=== PATIENT | male | born 1985 | race Caucasian/White ===

== ENCOUNTER 2020-02-04 22:50 | Emergency (ER) | payer BC ==
[~2020-02-04] VITALS: Ht 182.9 cm; Wt 102.2 kg
--- NOTE | 2020-02-05 00:52 | RAD ---
AP pelvis radiograph to include AP and lateral radiographs of the left hip 02/05/2020 CLINICAL HISTORY: Pelvic and left hip pain. Two AP digital radiographs of the pelvis and AP and lateral digital radiographs of the left hip were obtained. No pelvic bone fracture is seen. Both hips are intact. Specifically no fracture or dislocation left hip is seen. Surgical clips overlie the scrotum. No significant degenerative changes are noted. Calcifications are seen within the pelvis consistent with phleboliths. IMPRESSION: No acute osseous abnormality is seen. Electronically signed by: Gerry Sandy MD (02/05/2020 12:49 AM) [id number]
[2020-02-05] MEDS ORDERED: ORPHENADRINE CITRATE 60 MG/2 ML VIAL. IM ONE (01:00)
[2020-02-05 01:11] VITALS: BP 134/66
--- NOTE | 2020-02-05 01:20 | RAD ---
CT scan of the lumbar spine contrast 02/05/2020 CLINICAL HISTORY: Low back pain which radiates down the left leg. TECHNIQUE: Unenhanced, contiguous, 0.625 mm axial sections were obtained through the lumbar spine. 3 mm reconstructed sagittal, axial and coronal images were obtained. One or more of the following individualized dose reduction techniques were utilized for this study: 1. Automated exposure control. 2. Adjustment of the mA and/or kV according to patient size. 3. Use of iterative reconstruction technique. FINDINGS: Sagittal and coronal reconstructed images demonstrate minimal S-shaped curvature of the thoracolumbar spine. No fracture or subluxation of the lumbar vertebrae is seen. On the axial images the changes of degenerative disc disease are seen involving the mid and lower lumbar disc spaces. These consist of minimal to mild generalized disc bulges, degenerative changes involving the facet joints and mild ligamentum flavum hypertrophy. These findings result in mild to moderate central spinal canal stenosis at L4-5. A left paracentral focal disc protrusion is seen at L5-S1 which appears to contribute to mild to moderate left greater than right central spinal canal stenosis and may impinge upon the left S1 nerve root within the left lateral aspect of the central spinal canal. No neural foraminal stenosis is seen. IMPRESSION: The changes of degenerative disc disease are seen involving the lower lumbar spine. These findings result in mild to moderate central spinal canal stenosis at L4-5 and mild to moderate left greater than right central spinal canal stenosis at L5-S1. A left paracentral focal disc protrusion is seen at L5-S1 which may impinge upon the left S1 nerve root within the left lateral aspect of the central spinal canal. No acute osseous abnormality is seen. Electronically signed by: Gerry Sandy MD (02/05/2020 1:17 AM) [id number]
--- NOTE | 2020-02-05 01:27 | PHYS DOC ---
Past Medical History Past Medical History: Sciatica Past Medical History gout, sciatica Past Surgical History: No Surgical History Smoking Status: Current Every Day Smoker Additional Information: [employer] Alcohol Use: Occasionally Drug Use: None General Adult EDM: Chief Complaint: HIP PAIN HPI: HPI: Patient is a 34 year old male who presents for evaluation of low back pain as well as numbness and pain from his left hip down to his foot. Symptoms do wax and wane. They are particular worse than 5 PM today but initial onset of symptoms was almost 7 months ago. Patient has a known history of sciatica. Patient previously seen his chiropractor last 3 months but not recently. Patient denies any fall, injury or new trauma. Patient took ibuprofen maximum dose today with minimal improvement of symptoms. Patient states that even earlier today his symptoms do wax and wane. There is no reported loss of bowel bladder control, footdrop or saddle anesthesia Review of Systems: Review of Systems: Constitutional: Denies fever or chills. [] Eyes: Denies change in visual acuity. [] HENT: Denies nasal congestion or sore throat. [] Respiratory: Denies cough or shortness of breath. [] Cardiovascular: Denies chest pain or edema. [] GI: Denies abdominal pain, nausea, vomiting, bloody stools or diarrhea. [] : Denies dysuria. [] Musculoskeletal: has back pain and left hip joint pain. [] Integument: Denies rash. [] Neurologic: Denies headache, focal weakness or sensory changes. [] Endocrine: Denies polyuria or polydipsia. [] Lymphatic: Denies swollen glands. [] Psychiatric: Denies depression or anxiety. [] Heart Score: Risk Factors: Risk Factors: DM, Current or recent (<one month) smoker, HTN, HLP, family history of CAD, obesity. Risk Scores: Score 0 - 3: 2.5% MACE over next 6 weeks - Discharge Home Score 4 - 6: 20.3% MACE over next 6 weeks - Admit for Clinical Observation Score 7 - 10: 72.7% MACE over next 6 weeks - Early Invasive Strategies Current Medications: Current Medications Medications (Trade) Dose Ordered Sig/Jaime Start Time Stop Time Status Last Admin Dose Admin Orphenadrine Citrate (Norflex) 60 mg 1X ONCE 02/05/20 01:00 02/05/20 01:01 DC 02/05/20 01:08 60 MG Allergies: Allergies: Allergies Coded Allergies Type Severity Reaction Last Updated Verified No Known Drug Allergies 02/04/20 No Physical Exam: PE: Constitutional: Well developed, well nourished, moderate acute distress, non- toxic appearance. [] HENT: Normocephalic, atraumatic, bilateral external ears normal, oropharynx moist, no oral exudates, nose normal. [] Eyes: PERRL, EOMI, conjunctiva normal, no discharge. [] Neck: Normal range of motion, no tenderness, supple, no stridor. [] Cardiovascular:Heart rate regular rhythm, no murmur [] Lungs & Thorax: Bilateral breath sounds clear to auscultation [] Abdomen: Bowel sounds normal, soft, no tenderness. [] Skin: Warm, dry, no erythema, no rash. [] Back: bilateral lower lumbar tenderness, tender left hip area but no obvious deformity,. [] Extremities: No tenderness, no cyanosis, ROM intact, no edema, pro sensation intact, good pulses, leg normal temperature [] Neurologic: Alert and oriented X 3, normal motor function, normal sensory function, no focal deficits noted. [] Psychologic: Affect normal, judgement normal, mood normal. [] Current Patient Data: Vital Signs: Vital Signs Date Time Temp Pulse Resp B/P (MAP) Pulse Ox O2 Delivery O2 Flow Rate FiO2 02/05/20 01:11 58 20 134/66 (88) 100 Room Air 02/04/20 23:12 98.0 98.0 EKG: EKG: [] Radiology/Procedures: Radiology/Procedures: [[facility] [address] [place] [address] IMAGING REPORT Signed PATIENT: DOMINICK CUADRA ACCOUNT: [id number] : 1985 LOCATION: ER AGE: 34 SEX: M EXAM STATUS: REG ER ORD. PHYSICIAN: SHELDON KESSLER DO REASON: hip/pelvic area pain PROCEDURE: HIP LEFT 2V WITH PELVIS AP pelvis radiograph to include AP and lateral radiographs of the left hip 02/05/2020 CLINICAL HISTORY: Pelvic and left hip pain. Two AP digital radiographs of the pelvis and AP and lateral digital radiographs of the left hip were obtained. No pelvic bone fracture is seen. Both hips are intact. Specifically no fracture or dislocation left hip is seen. Surgical clips overlie the scrotum. No significant degenerative changes are noted. Calcifications are seen within the pelvis consistent with phleboliths. IMPRESSION: No acute osseous abnormality is seen. Electronically signed by: Gerry Rivers MD (02/05/2020 12:49 AM) [id number] DICTATED and SIGNED BY: GERRY RIVERS MD DATE: 02/05/20 0049 ] Impression: [facility] [address] [place] [address] IMAGING REPORT Signed PATIENT: DOMINICK CUADRA ACCOUNT: [id number] : 1985 LOCATION: ER AGE: 34 SEX: M EXAM STATUS: REG ER ORD. PHYSICIAN: SHELDON KESSLER DO REASON: low back pain, left sciatica PROCEDURE: CT LUMBAR SPINE WO CONTRAST CT scan of the lumbar spine contrast 02/05/2020 CLINICAL HISTORY: Low back pain which radiates down the left leg. TECHNIQUE: Unenhanced, contiguous, 0.625 mm axial sections were obtained through the lumbar spine. 3 mm reconstructed sagittal, axial and coronal images were obtained. One or more of the following individualized dose reduction techniques were utilized for this study: 1. Automated exposure control. 2. Adjustment of the mA and/or kV according to patient size. 3. Use of iterative reconstruction technique. FINDINGS: Sagittal and coronal reconstructed images demonstrate minimal S-shaped curvature of the thoracolumbar spine. No fracture or subluxation of the lumbar vertebrae is seen. On the axial images the changes of degenerative disc disease are seen involving the mid and lower lumbar disc spaces. These consist of minimal to mild generalized disc bulges, degenerative changes involving the facet joints and mild ligamentum flavum hypertrophy. These findings result in mild to moderate central spinal canal stenosis at L4-5. A left paracentral focal disc protrusion is seen at L5-S1 which appears to contribute to mild to moderate left greater than right central spinal canal stenosis and may impinge upon the left S1 nerve root within the left lateral aspect of the central spinal canal. No neural foraminal stenosis is seen. IMPRESSION: The changes of degenerative disc disease are seen involving the lower lumbar spine. These findings result in mild to moderate central spinal canal stenosis at L4-5 and mild to moderate left greater than right central spinal canal stenosis at L5-S1. A left paracentral focal disc protrusion is seen at L5-S1 which may impinge upon the left S1 nerve root within the left lateral aspect of the central spinal canal. No acute osseous abnormality is seen. Electronically signed by: Gerry Rivers MD (02/05/2020 1:17 AM) [id number] DICTATED and SIGNED BY: GERRY RIVERS MD DATE: 02/05/20 0117 Course & Med Decision Making: Course & Med Decision Making Pertinent Labs and Imaging studies reviewed. (See chart for details) [] Dragon Disclaimer: Dragon Disclaimer: This electronic medical record was generated, in whole or in part, using a voice recognition dictation system. 0130 stable, pain improved at this time. Patient demonstrates a steady gait with no muscle weakness. Patient demonstrates sciatica to his left leg. There is multiple areas of degenerative changes and disc bulging etc. in his lower lumbar and upper sacral area. Patient given a copy of his CAT scan. Patient aware that he needs to follow-up with a spine surgeon or neurosurgeon who does spine work as soon as possible. There is no emergency indication for admission at this time as he is neurologically intact. He was advised that should he develop loss of bowel bladder control, footdrop or saddle anesthesia he needs to immediately needs to return to the hospital Departure Departure Impression: Primary Impression: Back pain with left-sided sciatica Disposition: HOME, SELF-CARE Condition: STABLE Referrals: NO PCP (PCP) Patient Instructions: Back Pain, Adult, Sciatica Additional Instructions: No heavy lifting, take medication as directed, call and see a back surgeon right away and follow, return should you develop loss of bowel bladder control, footdrop or groin numbness Scripts Cyclobenzaprine Hcl (CYCLOBENZAPRINE HCL) 10 Mg Tablet 1 TAB PO TID, #30 TAB Prov: SHELDON KESSLER DO 02/05/20 Justicifation of Admission Dx: Justifications for Admission: Justification of Admission Dx: N/A SHELDON KESSLER DO Feb 05, 2020 01:27
[2020-02-05] MEDS ORDERED: CYCL10TA2 PO (01:40)
== END 2020-02-05 01:46 | disposition home or self-care (01) ==
LOC: ER 22:50
DX: M54.42 Lumbago with sciatica, left side (principal); M25.552 Pain in left hip; R20.0 Anesthesia of skin; F17.200 Nicotine dependence, unspecified, uncomplicated
CPT/HCPCS: 72131; 73502; 96372; 99284; J2360